=== PATIENT | female | born 1965 | race Caucasian/White ===

== ENCOUNTER 2020-08-06 07:38 | Outpatient (CLI) | payer BC, SELFPAY ==
--- NOTE | ~2020-08-06 | MM_ITS ---
EXAMINATION: MM screening jono BI w declan HISTORY: Screening TECHNIQUE: Craniocaudal and mediolateral oblique 3-D tomosynthesis images were obtained and synthetic 2-D images were generated. CAD analysis was submitted and interpreted. COMPARISON: Comparison to multiple prior studies sequentially, with oldest reviewed study dated 10/2014. BREAST PARENCHYMAL COMPOSITION: There are scattered areas of fibroglandular density. FINDINGS: There is no evidence of suspicious mass, calcification, or architectural distortion to sugg est malignancy in either breast. There has been no suspicious interval change. IMPRESSION: 1. No mammographic evidence of malignancy. 2. Recommend routine screening mammography in one year. BI-RADS Category 1: Negative Reviewed, dictated and finalized at location A. ALLY RETARDED TEACHER
== END 2020-08-06 07:39 | disposition home or self-care (01) ==
LOC: ANHIMG 07:42
PROVIDERS: PCP Family Medicine; Visit Provider Student in an Organized Health Care Education/Training Program
DX: Z12.31 Encounter for screening mammogram for malignant neoplasm of breast (principal)
CPT/HCPCS: 77063; 77067

== ENCOUNTER 2021-09-25 08:42 | Outpatient (CLI) | payer BC, SELFPAY ==
--- NOTE | ~2021-09-25 | MM_ITS ---
EXAMINATION: MM screening jono BI w declan HISTORY: Screening mammogram, family history of breast cancer in her mother. TECHNIQUE: Craniocaudal and mediolateral oblique 3-D tomosynthesis images were obtained and synthetic 2-D images were generated. CAD analysis was submitted and interpreted. COMPARISON: 08/06/2020, 02/18/2019, 02/19/2018, 02/12/2018 BREAST PARENCHYMAL COMPOSITION: There are scattered areas of fibroglandular density. FINDINGS: There is no evidence of suspicious mass, calcification, or architectural distortion to sugg est malignancy in either breast. There has been no suspicious interval change. IMPRESSION: 1. No mammographic evidence of malignancy. 2. Recommend routine screening mammography in one year. BI-RADS Category 1: Negative Reviewed, dictated and finalized at location A. RVISOR IRRIGATION
== END 2021-09-25 08:43 | disposition home or self-care (01) ==
LOC: ANHIMG 08:43
PROVIDERS: PCP Family Medicine; Visit Provider Student in an Organized Health Care Education/Training Program
DX: Z12.31 Encounter for screening mammogram for malignant neoplasm of breast (principal)
CPT/HCPCS: 77063; 77067

== ENCOUNTER 2022-11-05 09:17 | Outpatient (CLI) | payer BC, SELFPAY ==
--- NOTE | ~2022-11-05 | MM_ITS ---
EXAMINATION: MM screening jono BI w declan HISTORY: Screening mammogram, family history of breast cancer in her mother. TECHNIQUE: Craniocaudal and mediolateral oblique 3-D tomosynthesis images were obtained and synthetic 2-D images were generated. CAD analysis was submitted and interpreted. COMPARISON: 09/15/2021, 08/06/2020, 02/18/2019 BREAST PARENCHYMAL COMPOSITION: There are scattered areas of fibroglandular density. FINDINGS: No suspicious mass, calcification, or architectural distortion are identified in either herberth ast to suggest malignancy. There has been no suspicious interval change. IMPRESSION: 1. No mammographic evidence of malignancy. 2. Recommend routine screening mammography in one year. BI-RADS Category 1: Negative Reviewed, dictated and finalized at location A. WINDING MACHINE OPERATOR
== END 2022-11-05 09:18 | disposition home or self-care (01) ==
LOC: ANHIMG 09:21
PROVIDERS: PCP Family Medicine; Visit Provider Obstetrics & Gynecology
DX: Z12.31 Encounter for screening mammogram for malignant neoplasm of breast (principal)
CPT/HCPCS: 77063; 77067

== ENCOUNTER 2023-11-13 08:42 | Outpatient (CLI) | payer BC, SELFPAY ==
--- NOTE | ~2023-11-13 | MM_ITS ---
EXAMINATION: MM screening jono BI w declan HISTORY: Screening mammogram TECHNIQUE: Craniocaudal and mediolateral oblique 3-D tomosynthesis images were obtained and synthetic 2-D images were generated. CAD analysis was submitted and interpreted. COMPARISON: 11/05/2022, 09/25/2021 bilateral screening mammogram examinations BREAST PARENCHYMAL COMPOSITION: There are scattered areas of fibroglandular density. FINDINGS: There is no evidence of suspicious mass, calcification, or architectural distortion to sugg est malignancy in either breast. There has been no suspicious interval change. IMPRESSION: 1. No mammographic evidence of malignancy. 2. Recommend routine screening mammography in one year. BI-RADS Category 1: Negative Reviewed, dictated and finalized at location A.
== END 2023-11-13 08:43 | disposition home or self-care (01) ==
LOC: ANHIMG 08:45
PROVIDERS: PCP Family Medicine; Visit Provider Obstetrics & Gynecology
DX: Z12.31 Encounter for screening mammogram for malignant neoplasm of breast (principal)
CPT/HCPCS: 77063; 77067

== ENCOUNTER 2024-11-18 15:23 | Outpatient (CLI) | payer BC, SELFPAY ==
--- NOTE | ~2024-11-18 | MM_ITS ---
EXAMINATION: MM screening jono BI w declan HISTORY: Screening TECHNIQUE: Craniocaudal and mediolateral oblique 3-D tomosynthesis images were obtained and synthetic 2-D images were generated. CAD analysis was submitted and interpreted. COMPARISON: Comparison to multiple prior studies sequentially, with oldest reviewed study dated 02/18. BREAST PARENCHYMAL COMPOSITION: Not dense: There are scattered areas of fibroglandular density. FINDINGS: There is no evidence of suspicious mass, calcification, or architectural distortion to sugg est malignancy in either breast. There has been no suspicious interval change. IMPRESSION: 1. No mammographic evidence of malignancy. 2. Recommend routine screening mammography in one year. BI-RADS Category 1: Negative Reviewed, dictated and finalized at location B.
--- OUTSIDE RECORDS SUMMARY | 2024-11-18 15:37 | XMS_ITS | Referral Summary ---
Author Organization [facility] Address [address] [place] [address] Care Team Providers Care Electrical Panel Builder Name Role Phone Po Cleopatra WILCOX Primary Care Provider [phone] Allergies No known active allergies Medications vrrwutee-kfaq-XN-c alcium-mins 18 mg iron-400 mcg-500 mg Ca tablet Take by mouth Active bismuth subsalicylate 262 mg tablet Take by mouth Active L.acidop,hossein,lac,r arellano-B.lac,norberto (Advanced Probiotic) 625 mg (10 billion cell) capsule Take by mouth Active Active Problems Problem Noted Date Diagnosed Date Chronic diarrhea 01/21/2024 Assessment & Plan (01/30/2024 3:40 PM CDT): The patient has chronic diarrhea for 1 year. In the past she was diagnosed with IBS she follows with outside the gastroenterology progress. Will start by colonoscopy and biopsy of the lining of the colon. Meanwhile she can continue Pepto-Bismol. Follow up after the colonoscopy as needed and depending on the findings. Social History Tobacco Use Types Packs/Day Years Used Date Smoking Tobacco: Never Smokeless Tobacco: Never AUDIT-C Answer Date Recorded Q1: How often do you have a drink containing alcohol? Never 02/25/2024 Q2: How many drinks containi ng alcohol do you have on a typical day when you are drinking? Patient does not drink Q3: How often do you have si x or more drinks on one occasion? Never 02/25/2024 Personal Safety Answer Date Recorded Have you ever been in or are you currently in a harmful physical or emotional relationship or is someone making you feel afraid or unsafe? Denies 02/26/2024 Comments Unknown Sex and Gender Information Value Date Recorded Sex Assigned at Not on file Legal Sex Female 7:20 PM CDT Gender Identity Not on file Sexual Orientation Not on file Last Filed Vital Signs Vital Sign Reading Time Taken Comments Blood Pressure 102/63 02/26/2024 10:40 AM CDT Pulse 61 02/26/2024 10:40 AM CDT Temperature 36.8 C (98.2 F) 02/26/2024 10:40 AM CDT Respiratory Rate 16 02/26/2024 10:40 AM CDT Oxygen Saturation 100% 02/26/2024 10:40 AM CDT Inhaled Oxygen Concentration - - Weight 81.6 kg (180 lb) 02/26/2024 9:14 AM CDT Height 175.3 cm (5' 9 ) 02/26/2024 9:14 AM CDT Body Mass Index 26.58 02/26/2024 9:14 AM CDT Plan of Treatment Not on file Procedures Procedure Name Priority Date/Time Associated Diagnosis Comments COLONOSCOPY 02/26/2024 8:51 AM CDT from Last 3 Months or Most Recently Relevant to Health Maintenance Results * Colonoscopy (02/26/2024 8:51 AM CDT) Anatomical Region Laterality Modality Other Narrative Procedure Note Shashank Mares MD - 02/26/2024 8:51 AM CDT [facility] Patient Name: Kaykay Narvaez Procedure Date: 02/26/2024 8:51 AM Date of : 1965 Admit Type: Outpatient Age: 58 Gender: Female Attending MD: Shashank Mares M.D. Room: [facility] 1 Note Status: Finalized Patient Profile: This is a 58 year old female. History of polyps. Grandmother had the history of colon cancer atyoung age. Noted complaints of chronic diarrhea with some improvement with probiotics. Procedure: Colonoscopy Indications: High risk colon cancer surveillance: Personalhistory of colonic polyps, Last colonoscopy: 2018 Referring MD: Naeem Walsh Providers: Shashank Mares M.D. Impression: - Random colon biopsy performed - One 6 mm polyp in the ascending colon, removedwith a jumbo cold forceps. Resected and retrieved. - One 6 mm polyp in the descending colon, removedwith a jumbo cold forceps. Resected and retrieved. - Diverticulosis in the sigmoid colon and in the descending colon. - Internal hemorrhoids. Recommendation: - Await pathology results. - Repeat colonoscopy in 4 years for surveillance. - Continue present medications. Medicines: Monitored Anesthesia Care Complications: No immediate complications. Estimated Blood Loss: Estimated blood loss: none. Procedure: Pre-Anesthesia Assessment: - Prior to the procedure, a History and Physicalwas performed, and patient medications and allergieswere reviewed. The patient's tolerance of previous anesthesia was also reviewed. The risks andbenefits of the procedure and the sedation options and risks were discussed with the patient. All questions were answered, and informed consent was obtained. Prior Anticoagulants: The patient has taken noanticoagulant or antiplatelet agents. ASA Grade Assessment: Per anesthesia note and evaluation. After reviewing the risks and benefits, the patient was deemed in satisfactory condition to undergo the procedure. The benefits, risks and alternatives of theprocedure and sedation were discussed and informed consentwas obtained. All questions were answered. Please referto the signed informed consent document in the medical record. The bowel preparation used was Miralax and bisacodyl tablets via split dose instruction. The scope was passed under direct vision. The Pediatric Colonoscope PCF-H190L [id number] was introducedthrough the anus and advanced to the the cecum, identifiedby appendiceal orifice and ileocecal valve. Thequality of the bowel preparation was fair. Bowel prep was administered using a split dose. Findings: The perianal and digital rectal examinations were normal. The cecum appeared normal. A 6 mm polyp was found in the ascending colon. The polyp was sessile. The polyp was removed with a jumbo cold forceps. Resection andretrieval were complete. A 6 mm polyp was found in the descending colon. The polyp was semi-sessile. The polyp was removed with a jumbo cold forceps.Resection and retrieval were complete. The colon (entire examined portion) mucosa appeared normal. Biopsiesfor histology were taken with a cold forceps from the entire colon for evaluation of microscopic colitis. Many small-mouthed diverticula were found in the sigmoid colon and descending colon. Internal hemorrhoids were found during retroflexion. The hemorrhoids were small. Electronically signed by Shashank Mares M.D. Shashank Mares M.D. 02/26/2024 10:25:50 AM Number of Addenda: 0 Note Initiated On: 02/26/2024 8:51 AM Procedure Code(s): --- Professional --- 56187, Colonoscopy, flexible; with biopsy, single or multiple Diagnosis Code(s): --- Professional --- Z86.010, Personal history of colonic polyps K64.8, Other hemorrhoids D12.4, Benign neoplasm of descending colon D12.2, Benign neoplasm of ascending colon K57.30, Diverticulosis of large intestine without perforation orabscess without bleeding CPT copyright 2020 [employer]. All rights reserved. The codes documented in this report are preliminary and upon embedded nurse reviewmay be revised to meet current compliance requirements. Recognized by the [employer] for promoting quality in endoscopy Shashank Mares MD ENDOSCOPY PROCEDURES Final Result from Last 3 Months or Most Recently Relevant to Health Maintenance Insurance [facility] Advance Directives For more information, please contact: [phone] * Full Code (Latest Code Status on File) Date Activated Date Inactivated Comments 02/26/2024 9:09 AM 02/26/2024 3:02 PM * Full Code Date Activated Date Inactivated Comments 02/26/2024 9:09 AM 02/26/2024 9:09 AM Care Teams Electrical Panel Builder Relationship Specialty Start Date End Date Cleopatra Fontenot NP [address] [address] PCP - General Family Medicine 10/02/23
--- OUTSIDE RECORDS SUMMARY | 2024-11-18 15:37 | XMS_ITS | Continuity of Care Document ---
Author Organization [facility] Address [address] [place] [address] [address] [place] [address] Phone Care Team Providers Care Log Rider Name Role Phone Aisha Almazan Unavailable Unavailable Advance Directives Directive Yes / No Effective Date File Name No Information Encounters Encounter Description Practice Location Reason(s) For Visit Diagnoses Date Provider Providers Copied on Encounter [facility], [address], [place], [place], [id number], [place] tel:[phone] [facility] No Information May-0 5-200 6 Norah Leonard. [address] , [address], [place], [address], [place]. tel:[phone] Family History Family Member Type Diagnosis Age At Onset No Information Payers Payer name Insurance type Covered libertarian ID Authorprimoa zaki(s) [facility] CI [id number] Social History Type Description Quantity Date Captured Comments Sex Female Smoking Status No Information Chief Complaint And Reason For Visit No Information Reason For Referral Reason For Referral No Information History Of Present Illness Encounter Date Complaint History Of Prese nt Illness No Information Functional Status Date Functional Assessmen t No Information Instructions Date Instruction Additional Infor mation No Information Assessments Type Assessment Date No Information Patient Care Teams Name Effective Dates (start - stop) Status Members No Information
--- OUTSIDE RECORDS SUMMARY | 2024-11-18 15:37 | XMS_ITS | Clinical Summary ---
Author Organization [facility] Address [address] [facility] [address] [place] [address] Phone Care Team Providers Care Wrecker Driver Name Role Phone Sin Rodas MD Primary Care Provider Allergies No known active allergies Medications spironolactone (ALDACTONE) 100 MG Tablet Take 100 mg by mouth daily. 8 Active Calcium Carb-Cholecalci ferol (CALCIUM 600 + D PO) Take 1 Tab by mouth daily. Active Cholecalciferol (VITAMIN D PO) Take 1 Tab by mouth daily. Active Multiple Vitamin (M.V.I. ADULT IV)Indications: FOOD NUTRIENT COMPLEX 3 Caps by Intravenous route daily. Active Family History Medical History Relation Name Comments Cancer Father brain Cancer Maternal Aunt stomach Cancer Maternal Grandmother colon Cancer Mother breast Relation Name Status Comments Father Maternal Aunt Maternal Grandmother Mother Social History Tobacco Use Types Packs/Day Years Used Date Smoking Tobacco: Never Smokeless Tobacco: Never Alcohol Use Standard Drinks/Week Comments No 0 (1 standard drink = 0.6 oz pur e alcohol) Comments Unknown Sex and Gender Information Value Date Recorded Sex Assigned at Not on file Legal Sex Female 10:34 PM CDT Gender Identity Not on file Sexual Orientation Not on file Last Filed Vital Signs Vital Sign Reading Time Taken Comments Blood Pressure 104/74 07/19/2018 8:35 AM TIMBER TREATING TANK OPERATOR Pulse 77 07/19/2018 8:35 AM TIMBER TREATING TANK OPERATOR Temperature 36 C (96.8 F) 07/19/2018 8:35 AM TIMBER TREATING TANK OPERATOR Respiratory Rate 13 07/19/2018 8:35 AM TIMBER TREATING TANK OPERATOR Oxygen Saturation 100% 07/19/2018 8:35 AM TIMBER TREATING TANK OPERATOR Inhaled Oxygen Concentration - - Weight 72.6 kg (160 lb) 06/14/2018 3:00 PM CDT Height 175.3 cm (5' 9 ) 06/14/2018 3:00 PM CDT Body Mass Index 23.63 06/14/2018 3:00 PM CDT Plan of Treatment Health Maintenance Due Date Last Done Comments Hepatitis C Virus (HCV) Screening 1965 TdaP Immunization 1965 Hepatitis B Immunization (1 of 3 - 19+ 3-dose series) 1986 Pap Smear 1988 Cervical Cancer Screening (CCS) 1997 HPV/Cotest 1997 Cologuard 2017 Immunochemical Fecal Occult Blood 2017 Mammogram 2017 Pneumococcal Immunization (5 0+ years) (1 of 1 - PCV) 2017 Zoster Immunization (1 of 2) 2017 Colonoscopy 07/19/2023 07/19/2018 Colorectal Cancer Screening 07/19/2023 Influenza Immunization (#1) 2024 SARS-COV-2 Immunization ( - season) 2024 Respiratory Syncytial Virus (RSV) Immunization (Adult) (1 - 1-dose 75+ series) 2042 07/19/2018 Meningococcal Immunization (ACWY) Aged Out No longer eligible based on patient's age to complete this topic Pneumococcal Immunization Combined Aged Out No longer eligible based on patient's age to complete this topic Rotavirus Immunization Aged Out No lo nger eligible based on patient's age to complete this topic Insurance [facility] Care Teams Wrecker Driver Relationship Specialty Start Date End Date Sin Rodas MD [address] [address] PCP - General Family Medicine 05/24/18
--- OUTSIDE RECORDS SUMMARY | 2024-11-18 15:37 | XMS_ITS | Clinical Summary ---
Author Organization [facility] Building [facility] Address [address] [place] [address] Care Team Providers Care Parliamentary Librarian Name Role Phone Po Cleopatra WILCOX Primary Care Provider [phone] Allergies No known active allergies Medications wqxikaer-wmnl-UL-c alcium-mins 18 mg iron-400 mcg-500 mg Ca [...] as needed and depending on the findings. Surgical History Surgery Date Site/Laterality Comments COLONOSCOPY 6 years ago COLONOSCOPY 02/26/2024 Family History Medical History Relation Name Comments Colon cancer Maternal Grandmother Relation Name Status Comments Maternal Grandmother Social History Tobacco Use Types Packs/Day Years [...] on file Sexual Orientation Not on file Obstetrics History Last Filed Vital Signs Vital Sign Reading [...] 02/26/2024 9:14 AM CDT Plan of Treatment Health Maintenance Due Date Last Done Comments Breast Cancer Screening-Mammogram 1965 Cervical Cancer Screening 1965 Depression Screening 1965 Hepatitis C Screening 1965 DTaP/Tdap/Td Vaccine (1 - Tdap) 1978 Regular Well Visit/Exam 18-64 1985 Zoster Vaccine (1 of 2) 2017 Covid-19 Vaccine (3 - 2023-2 5 season) 2024 07/15/2021, 06/22/2021 Influenza Vaccine (#1) 2024 Colon Cancer Screening-Colonoscopy 02/25/2034 02/26/2024 Hepatitis B Screening Completed 08/13/2009 , 03/05/2009, 02/02/2009 Pneumococcal vaccine <65 Aged Out No longer eligible based on patient's age to complete this topic Procedures Procedure Name Priority Date/Time Associated Diagnosis Comments COLONOSCOPY 02/26/2024 8:51 AM CDT from Last 3 Months or Most Recently Relevant to Health Maintenance Results * Colonoscopy (02/26/2024 8:51 AM CDT) Anatomical Region Laterality Modality Other Narrative Procedure Note Shashank Mares MD - 02/26/2024 8:51 AM CDT [facility] Patient Name: Kaykay Narvaez Procedure Date: 02/26/2024 8:51 AM Date of : 1965 Admit Type: Outpatient Age: 58 Gender: Female Attending MD: Shashank Mares M.D. Room: [facility] RO[facility] 1 Note Status: Finalized Patient Profile: This is a 58 year old female. History of polyps. Grandmother had the history of colon cancer atyoung age. Noted complaints of chronic diarrhea with some improvement with probiotics. Procedure: Colonoscopy Indications: High risk colon cancer surveillance: Personalhistory of colonic polyps, Last colonoscopy: 2017 Referring MD: Cleopatra Fontenot, F.N.P. Providers: Shashank Mares M.D. Impression: - Random [...] under direct vision. The Pediatric Colonoscope PCF-H190L [id number] was introducedthrough the anus and advanced to [...] 8:51 AM Procedure Code(s): --- Professional --- 76131, Colonoscopy, flexible; with biopsy, single or multiple Diagnosis Code(s): --- Professional --- Z86.010, Personal history of colonic polyps K64.8, Other hemorrhoids D12.4, Benign neoplasm of descending colon D12.2, Benign neoplasm of ascending colon K57.30, Diverticulosis of large intestine without perforation orabscess without bleeding CPT copyright 2020 [employer]. All rights reserved. The codes documented in this report are preliminary and upon business employment specialist reviewmay be revised to meet current compliance requirements. Recognized by the [employer] for promoting quality in endoscopy Shashank Mares MD ENDOSCOPY PROCEDURES Final Result from Last 3 Months or Most Recently Relevant to Health Maintenance Insurance [facility] Advance Directives For more information, please contact: [phone] * Full Code (Latest Code Status on File) Date Activated Date Inactivated Comments 02/26/2024 9:09 AM 02/26/2024 3:02 PM * Full Code Date Activated Date Inactivated Comments 02/26/2024 9:09 AM 02/26/2024 9:09 AM Care Teams Parliamentary Librarian Relationship Specialty Start Date End Date Cleopatra Fontenot NP [address] [address] PCP - General Family Medicine 10/02/23
== END 2024-11-18 15:24 | disposition home or self-care (01) ==
LOC: ANHIMG 15:36
PROVIDERS: PCP Family Medicine; Visit Provider Nurse Practitioner Obstetrics & Gynecology
DX: Z12.31 Encounter for screening mammogram for malignant neoplasm of breast (principal)
CPT/HCPCS: 77063; 77067